=== PATIENT | male | born 1985 | race Asian ===

== ENCOUNTER 2020-04-10 10:41 | Emergency (ER) | payer OTHER ==
[2020-04-10 10:45] VITALS: BP 157/105; PULSE 86; TEMP 98; BMI 28.0
[2020-04-10] MEDS ORDERED: diphenhydrAMINE HCL 25 MG CAPSULE (FP) PO ONE ×2 (11:02→11:11)
[2020-04-10] MEDS ORDERED: DEXAMETHASONE SOD PHOSPHATE 10 MG/1 ML VIAL IM ONE (11:02)
[2020-04-10] MEDS ORDERED: FAMOTIDINE 10 MG TABLET PO ONE (11:02)
[2020-04-10] MEDS ORDERED: DEXAMETHASONE SOD PHOSPHATE 10 MG/1 ML VIAL ONE (11:11)
[2020-04-10] MEDS ORDERED: FAMOTIDINE 20 MG TABLET ONE (11:12)
== END 2020-04-10 11:41 | disposition home or self-care (01) ==
LOC: JERFT 10:41
PROC: 3E023GC Introduction of Other Therapeutic Substance into Muscle, Percutaneous Approach (ICD-10-PCS; principal; 2020-04-10)
DX: T78.40XA Allergy, unspecified, initial encounter (principal)
CPT/HCPCS: 99284-25; J1100

== ENCOUNTER 2023-05-18 21:13 | Emergency (ER) | payer OTHER ==
[2023-05-18 21:22] VITALS: BP 115/72; PULSE 90; RESP 20; TEMP 97.8; BMI 36.5
[2023-05-18] MEDS ORDERED: LIDOCAINE HCL 1%, 10 MG/ML (20ML VIAL) ONE (22:42)
[2023-05-18] MEDS: LIDOCAINE HCL 1%, 10 MG/ML (50 mL VIAL) INF ONE (22:45)
[2023-05-18] MEDS ORDERED: BACITRACIN ZINC 15 GM TUBE TOPICAL OINTMENT ONE ×2 (23:10)
[2023-05-18] MEDS ORDERED: DIPHTH,PERTUSS(ACELL),TET 0.5 ML DISP.SYRIN IM ONE (23:12)
[2023-05-18] MEDS: BACITRACIN 0.9 GM PACKET TP ONE (23:13)
[2023-05-18] MEDS: DIPHTH,PERTUSS(ACELL),TET 0.5 ML DISP.SYRIN IM ONE (23:29)
== END 2023-05-18 23:54 | disposition home or self-care (01) ==
LOC: JERFT 21:13
PROC: 0HQNXZZ Repair Left Foot Skin, External Approach (ICD-10-PCS; principal; 2023-05-18)
PROC: 3E0234Z Introduction of Serum, Toxoid and Vaccine into Muscle, Percutaneous Approach (ICD-10-PCS; 2023-05-18)
DX: S91.312A Laceration without foreign body, left foot, initial encounter (principal); W31.9XXA Contact with unspecified machinery, initial encounter; Y93.01 Activity, walking, marching and hiking
CPT/HCPCS: 73630-TC-LT; 90715; 99283-25